=== PATIENT | female | born 1965 | race African-American/Black ===

== ENCOUNTER 2019-11-09 19:59 | Emergency (ER) | payer OTHER ==
--- NOTE | 2019-11-09 22:59 | ER Document Report ---
ED Medical Screen (RME) - General Chief Complaint: High Blood Sugar Stated Complaint: BLOOD SUGAR ISSUE Notes: Patient is a 54-year-old -[place] female with a history of hypertension, diabetes and multiple myeloma who started chemotherapy on , 2 days ago for her first session. She reports today she went shopping and upon returning home from shopping she felt very dizzy as if she was going to "pass out". She states that she went to the restroom and had some diarrhea, subsequently sitting for about 5 to 7 minutes and then the dizziness subsided. She states she is currently asymptomatic but given that she is new to chemotherapy she came for evaluation. Oncologist in [place]. I have treated and performed a rapid initial assessment of this patient. A comprehensive ED assessment and evaluation of the patient, analysis of test results and completion of medical decision making process will be conducted by additional ED providers. PHYSICAL EXAMINATION: GENERAL: Well-appearing, well-nourished and in no acute distress. A&Ox4. Answers questions appropriately. Physical Exam - Vital signs Vitals: Temp Pulse Resp BP Pulse Ox 98.2 F 81 20 128/72 H 100 11/09/19 20:08 11/09/19 20:08 11/09/19 20:08 11/09/19 20:08 11/09/19 20:08 Course - Vital Signs Vital signs: Temp Pulse Resp BP Pulse Ox 98.2 F 81 20 128/72 H 100 11/09/19 20:08 11/09/19 20:08 11/09/19 20:08 11/09/19 20:08 11/09/19 20:08 - Laboratory Laboratory results interpreted by me: 11/09/19 20:10 POC Glucose 141 H
[2019-11-10 00:03] LABS: APPEARANCE,URINE CLEAR; BILIRUBIN,URINE NEGATIVE (NEGATIVE); COLOR,URINE YELLOW; GLUCOSE, URINE NEGATIVE (NEGATIVE); KETONES,URINE NEGATIVE (NEGATIVE); PROTEIN,URINE NEGATIVE (NEGATIVE); URINE SPECIFIC GRAVITY 1.013; UROBILINOGEN,URINE NEGATIVE mg/dL (<2.0)
--- NOTE | 2019-11-10 00:09 | RADIOLOGY REPORT (SQ) ---
EXAM DESCRIPTION: [facility]: CT HEAD WITHOUT IV CONTRAST CLINICAL HISTORY: 54 years Female; dizzy; TECHNIQUE: Noncontrast CT head. All CT scans at this facility use dose modulation, iterative reconstruction, and/or weight based dosing when appropriate to reduce radiation dose to as low as reasonably achievable. COMPARISON: None. FINDINGS: Smith matter, white matter, ventricles, and cisterns are within normal limits. No acute hemorrhage or mass effect. Visualized portions of paranasal sinuses and mastoids are clear. Visualized portions of the calvarium are within normal limits. IMPRESSION: 1. No acute intracranial findings.
--- NOTE | 2019-11-10 00:10 | RADIOLOGY REPORT (SQ) ---
EXAM DESCRIPTION: [facility]: XR CHEST 1 VIEW CLINICAL HISTORY: 54 years Female; dizzy; COMPARISON: None. FINDINGS: Lungs: Lungs are clear, with no focal infiltrate, pneumothorax, or pleural effusion. Mediastinum: Mediastinum is within normal limits for this positioning. Bones: Bony structures are unremarkable. IMPRESSION: 1. No acute pulmonary findings.
[2019-11-10 00:54] LABS: ABSOLUTE EOSINOPHILS # (AUTO) 0.1 10^3/uL (0.0-0.6); ABSOLUTE LYMPHOCYTES (AUTO) 2.4 10^3/uL (0.5-4.7); ABSOLUTE MONOCYTES (AUTO) 0.4 10^3/uL (0.1-1.4); ABSOLUTE NEUT (AUTO) 4.7 10^3/uL (1.7-8.2); BASOPHILS % (AUTO) 0.4 % (0-2); EOSINOPHILS % (AUTO) 1.1 % (0-6); HEMATOCRIT 31.3 % (36.0-47.0); HEMOGLOBIN 10.5 g/dL (12.0-15.5); LYMPHOCYTES % (AUTO) 31.2 % (13-45); MEAN CORPUSCULAR HEMOGLOBIN 25.7 pg (27.0-33.4); MEAN CORPUSCULAR HGB CONC 33.6 g/dL (32.0-36.0); MEAN CORPUSCULAR VOLUME 76 fl (80-97); MONOCYTES % (AUTO) 5.5 % (3-13); PLATELET COUNT 306 10^3/uL (150-450); RED CELL DISTRIBUTION WIDTH 14.5 % (11.5-14.0); SEGMENTED NEUTROPHILS % (AUTO) 61.8 % (42-78); TOTAL CELLS COUNTED % (AUTO) 100 %; WHITE BLOOD COUNT 7.6 10^3/uL (4.0-10.5)
[2019-11-10 01:02] LABS: INTERNATIONAL RATION (INR) 1.02; PARTIAL THROMBOPLASTIN TIME 24.3 SEC (23.5-35.8); PROTHROMBIN TIME 13.4 SEC (11.4-15.4)
[2019-11-10 01:15] LABS: ALBUMIN 4.3 g/dL (3.5-5.0); ALKALINE PHOSPHATASE 104 U/L (38-126); ANION GAP 9 (5-19); ASPARTATE AMINO TRANSFERASE 18 U/L (14-36); BILIRUBIN,TOTAL 0.4 mg/dL (0.2-1.3); BLOOD UREA NITROGEN 24 mg/dL (7-20); CALCIUM 10.3 mg/dL (8.4-10.2); CARBON DIOXIDE 27 mmol/L (22-30); CHLORIDE 100 mmol/L (98-107); CREATINE KINASE 36 U/L (30-135); GLUCOSE 113 mg/dL (75-110); POTASSIUM 3.8 mmol/L (3.6-5.0); TOTAL PROTEIN 8.4 g/dL (6.3-8.2)
--- NOTE | 2019-11-10 01:52 | ER Document Report ---
ED Dizziness/Weakness - General Chief Complaint: Dizziness Stated Complaint: BLOOD SUGAR ISSUE Time Seen by Provider: 11/10/19 00:55 Primary Care Provider: PELON CHATMAN MD [Primary Care Provider] - 11/11/19 Mode of Arrival: Ambulatory Information source: Patient Notes: 54-year-old female presented to ED for dizziness after she went shopping this afternoon. She states she started chemo on for multiple myeloma and oncology in [place]. She states she went shopping at [facility] return home went to the bathroom to urinate and have a diarrhea stool and then when she went to return to the chair she became very dizzy and felt like she was [place] but did not she sat down on a chair and the dizziness subsided. She states she actually feels very well right now. She states she called her oncologist and they told her to come to the emergency room to be evaluated. States she does feel a little tired but does not feel dizzy nauseated or any other abnor malities. - HPI Patient complains to provider of: Dizziness Onset: This evening Onset/Duration: Better Quality of pain: No pain Severity: Mild Pain Level: Denies Associated symptoms: Other - [place] very dizzy and felt like she was going to pass out after going to the bathroom. - Related Data Allergies/Adverse Reactions: strawberry Allergy (Verified 11/09/19 22:59) acetaminophen Adverse Reaction (Verified 11/09/19 23:02) Nausea diphenhydramine Adverse Reaction (Verified 11/09/19 23:02) Nausea Past Medical History - General Information source: Patient - Social History Smoking Status: Never Smoker Chew tobacco use (# tins/day): No Frequency of alcohol use: None Drug Abuse: None Lives with: Family Family History: Reviewed & Not Pertinent Patient has homicidal ideation: No - Medical History Medical History: Other - Iron deficiency - Past Medical History Cardiac Medical History: Reports: Hx Hypertension Pulmonary Medical History: Reports: None EENT Medical History: Reports: None Neurological Medical History: Reports: None Endocrine Medical History: Reports: Hx Diabetes Mellitus Type 2 Renal/ Medical History: Reports: None Malignancy Medical History: Reports: Other - Multiple myeloma GI Medical History: Reports: None Musculoskeletal Medical History: Reports Hx Musculoskeletal Trauma Skin Medical History: Reports None Psychiatric Medical History: Reports: None Traumatic Medical History: Reports: Hx Fractures - Left ankle Infectious Medical History: Reports: None Past Surgical History: Reports: Hx Cholecystectomy, Hx Tubal Ligation - Immunizations Immunizations up to date: Yes Hx Diphtheria, Pertussis, Tetanus Vaccination: Yes Review of Systems - Review of Systems Constitutional: No symptoms reported EENT: No symptoms reported Cardiovascular: Dizziness, Lightheaded Respiratory: No symptoms reported Gastrointestinal: No symptoms reported Genitourinary: No symptoms reported Female Genitourinary: No symptoms reported Musculoskeletal: No symptoms reported Skin: No symptoms reported Hematologic/Lymphatic: No symptoms reported Neurological/Psychological: No symptoms reported -: Yes All other systems reviewed and negative Physical Exam - Vital signs Vitals: Temp Pulse Resp BP Pulse Ox 98.2 F 81 20 128/72 H 100 11/09/19 20:08 11/09/19 20:08 11/09/19 20:08 11/09/19 20:08 11/09/19 20:08 Interpretation: Normal - General General appearance: Appears well, Alert - HEENT Head: Normocephalic, Atraumatic Eyes: Normal Pupils: PERRL - Respiratory Respiratory status: No respiratory distress Chest status: Nontender Breath sounds: Normal Chest palpation: Normal - Cardiovascular Rhythm: Regular Heart sounds: Normal auscultation Murmur: No - Abdominal Inspection: Normal Distension: No distension Bowel sounds: Normal Tenderness: Nontender Organomegaly: No organomegaly - Back Back: Normal, Nontender - Extremities General upper extremity: Normal inspection, Nontender, Normal color, Normal ROM, Normal temperature General lower extremity: Normal inspection, Nontender, Normal color, Normal ROM, Normal temperature, Normal weight bearing. No: Mary's sign - Neurological Neuro grossly intact: Yes Cognition: Normal Orientation: AAOx4 Mickie Coma Scale Eye Opening: Spontaneous Mickie Coma Scale Verbal: Oriented Mickie Coma Scale Motor: Obeys Commands [place] Coma Scale Total: 15 Speech: Normal Motor strength normal: LUE, RUE, LLE, RLE Sensory: Normal - Psychological Associated symptoms: Normal affect, Normal mood - Skin Skin Temperature: Warm Skin Moisture: Dry Skin Color: Normal Course - Re-evaluation Re-evalutation: 11/10/19 08:[address] and x-ray were discussed with patient and written report of labs CT and x-ray given to patient before discharge. Patient verbalized understanding and agreement with treatment plan and patient was discharged home. - Vital Signs Vital signs: Temp Pulse Resp BP Pulse Ox 98.2 F 83 14 110/74 100 11/09/19 20:08 11/10/19 02:40 11/10/19 03:01 11/10/19 03:01 11/10/19 03:01 - Laboratory Result Diagrams: 11/10/19 00:22 11/10/19 00:22 Laboratory results interpreted by me: 11/09/19 11/09/19 11/10/19 20:10 23:45 00:22 Hgb 10.5 L Hct 31.3 L MCV 76 L MCH 25.7 L RDW 14.5 H Sodium BUN Est GFR (MDRD) Non-Af Glucose POC Glucose 141 H Calcium Total Protein Urine Blood SMALL H Leukocyte Esterase Rfl SMALL H 11/10/19 00:22 Hgb Hct MCV MCH RDW Sodium 136.0 L BUN 24 H Est GFR (MDRD) Non-Af 58 L Glucose 113 H POC Glucose Calcium 10.3 H Total Protein 8.4 H Urine Blood Leukocyte Esterase Rfl - Diagnostic Test Radiology reviewed: Image reviewed, Reports reviewed - EKG Interpretation by Me EKG shows normal: Sinus rhythm Rate: Normal Rhythm: NSR [place]/QRS: Left axis deviation Discharge - Discharge Clinical Impression: Dizziness Condition: Stable Disposition: HOME, SELF-CARE Additional Instructions: DIZZINESS: Under normal circumstances, your sense of balance is controlled by a number of signals that your brain receives from several locations: Eyes. No matter what your position, visual signals help you determine where your body is in space and how it's moving. Sensory nerves. These are in your skin, muscles and joints. Sensory nerves send messages to your brain about body movements and positions. Inner ear. The organ of balance in your inner ear is the vestibular labyrinth. It includes loop-shaped structures (semicircular canals) that contain fluid and fine, hair-like sensors that monitor the rotation of your head. Near the semicircular canals are the utricle and saccule, which contain tiny partic les called otoconia ([id number]). These particles are attached to sensors that help detect gravity and gwet-qjp-tivee motion. Good balance depends on at least two of these three sensory systems working well. For instance, closing your eyes while washing your hair in the shower doesn't mean you'll lose your balance. Signals from your inner ear and sensory nerves help keep you upright. However, if your central nervous system can't process signals from all of these locations, if the messages are contradictory, or if the sensory systems aren't functioning properly, you may experience loss of balance. Dizziness may have a number of potential causes. These may include: Vertigo Vertigo - the false sense of motion or spinning - is the most common symptom of dizziness. Sitting up or moving around may make it worse. Sometimes vertigo is severe enough to cause nausea and vomiting. Vertigo usually results from a problem with the nerves and the structures of the balance mechanism in your inner ear (vestibular system), which sense movement and changes in your head position. Abnormal rhythmic eye movements (nystagmus) almost always accompany vertigo. Causes of vertigo may include: Benign paroxysmal positional vertigo (BPPV). BPPV involves intense, brief episodes of vertigo associated with a change in the position of your head, often when you turn over in bed or sit up in the morning. It occurs when normal calcium carbonate crystals (otoconia) break loose and fall into the wrong part of the canals in your inner ear. When these particles shift, they stimulate s ensors in your ear, producing an episode of vertigo. Doctors don't know what causes BPPV, but it may be a natural result of aging. Trauma to your head also may lead to BPPV. Inflammation in the inner ear. Signs and symptoms of inflammation of the inner ear (acute vestibular neuronitis or labyrinthitis) include sudden, intense vertigo that may persist for several days, with nausea and vomiting. It can be incapacitating, requiring bed rest to minimize the signs and symptoms. Fortunately, vestibular neuronitis generally subsides and clears up on its own. Recovery time may be shorter with vestibular rehabilitation exercises. Although the cause of this condition is unknown, it may be a viral infection. Meniere's disease. This disease involves the excessive buildup of fluid in your inner ear. It may affect adults at any age and is characterized by sudden episodes of vertigo lasting 30 minutes to an hour or longer. Other signs and symptoms include the feeling of fullness in your ear, buzzing or ringing in your ear (tinnitus), and fluctuating hearing loss. The cause of Meniere's disease is unknown. Vestibular migraine. People who experience a vestibular migraine are very sensitive to motion. Dizziness and vertigo caused by a vestibular migraine may be triggered by turning your head quickly, being in a crowded or confusing place, driving or riding in a vehicle, or even watching movement on TV. A vestibular migraine may cause feelings of imbalance or unsteadiness, hearing loss, "muffled" hearing, or ringing in your ears (tinnitus). For most people with a vestibular migraine, vertigo doesn't necessarily happen at the same time as the headache. Instead, typical migraine triggers may lead to vertigo without an actual migraine. Attacks of migrainous vertigo can last from a few minutes to several days. Acoustic neuroma. An acoustic neuroma (schwannoma) is a noncancerous (benign) growth on the acoustic nerve, which connects the inner ear to your brain. Signs and symptoms of an acoustic neuroma may include dizziness, loss of balance, hearing loss and tinnitus. Rapid changes in motion. Riding on roller coasters or in boats, cars or even airplanes may on occasion make you dizzy. Other causes. Rarely, vertigo can be a symptom of a more serious neurological problem such as a stroke, brain hemorrhage or multiple sclerosis. Feeling of faintness (presyncope) "Presyncope" is the medical term for feeling faint and lightheaded without losing consciousness. Sometimes nausea, pale skin and a sense of dizziness accompany a feeling of faintness. Causes of presyncope include: Drop in blood pressure (orthostatic hypotension). A dramatic drop in your systolic blood pressure - the higher number in your blood pressure reading - may result in lightheadedness or a feeling of faintness. It can occur after sitting up or standing too quickly. Inadequate output of blood from the heart. Conditions such as partially blocked arteries (atherosclerosis), disease of the heart muscle (cardiomyopathy), abnormal heart rhythm (arrhythmia) or a decrease in blood volume may cause inadequate blood flow from your heart. [place] MEDICATION: You have been given a medication to suppress nausea and vomiting. This type of medication can be given as a shot, pill, or suppository. It will usually last for many hours. Pills and shots usually last six to eight hours, suppositories last about 12 hours. For the typical illness, only one or two doses of the medication may be necessary. Mild lightheadedness may occur. This type of medicine can cause drowsiness. Do not drive or operate dangerous machinery while under its influence. Do not mix with alcohol. See your doctor at once if you have muscle spasms or tightness, or uncontrollable motions (particularly of the neck, mouth, or jaw). Persistent vomiting or severe lightheadedness should also be evaluated by the physician. FOLLOW-UP CARE: If you have been referred to a physician for follow-up care, call the physicians office for an appointment as you were instructed or within the next two days. If you experience worsening or a significant change in your symptoms, notify the physician immediately or return to the Emergency Department at any time for re-evaluation. Referrals: PELON CHATMAN MD [Primary Care Provider] - 11/11/19
[2019-11-10 03:24] VITALS: BP 110/74
--- NOTE | 2019-11-10 18:33 | EKG REPORT ---
SEVERITY:- OTHERWISE NORMAL ECG - SINUS RHYTHM BORDERLINE LEFT AXIS DEVIATION : Confirmed by: Bret Lindquist 10-Nov-2019 18:31:59
== END 2019-11-10 03:24 | disposition home or self-care (01) ==
LOC: ER 19:59
DX: R42 Dizziness and giddiness (principal); R53.83 Other fatigue; C90.00 Multiple myeloma not having achieved remission; I10 Essential (primary) hypertension; E11.9 Type 2 diabetes mellitus without complications; Z91.018 Allergy to other foods
CPT/HCPCS: 36415; 70450; 71045; 80053; 81001; 82550; 82962; 84484; 85025; 85610; 85730; 93005; 93010; 99284